=== PATIENT | female | born 1945 | race Caucasian/White ===

== ENCOUNTER → 2019-05-10 | Outpatient (CLI) | payer MEDICARE, OTHER ==
[~2019-05-10] MED LIST: ALEN70 PO; CALCIUM 600 +1 EAC9 PO; FAMVIR PO; Percocet 5-3251 EACH PO; SIMV10 PO
[2019-05-10 14:44] LABS: Stool Occult Bld Immuno 1 Positive (NEGATIVE)
== END ==
LOC: LAB 11:00 → LAB SHORT 11:00
PROVIDERS: Nurse Practitioner Family
DX: Z12.11 Encounter for screening for malignant neoplasm of colon (principal)
CPT/HCPCS: G0328

== ENCOUNTER 2019-10-18 08:06 | Day surgery (SDC) | payer MEDICARE, OTHER ==
[~2019-10-18] VITALS: Ht 162.6 cm; Wt 55.2 kg
[~2019-10-18 08:06] MED LIST changes: +ONE DAILY FOR1 EAC7 PO
--- NOTE | 2019-10-18 09:20 | NUR ---
10/18/19 0920 Valentine Johnson PT. SHAKING. PT. VERBALIZES BEING COLD. WARM BLANKET & WARM PACK GIVEN TO PT. CALL LIGHT IS WITHIN REACH. PT. REMINDED TO CALL IF NEEDED ANYTHING.
== END 2019-10-18 10:30 | disposition home or self-care (01) ==
LOC: ORSCSDS 08:06
PROVIDERS: Internal Medicine Gastroenterology
PROC: 0DJD8ZZ Inspection of Lower Intestinal Tract, Via Natural or Artificial Opening Endoscopic (ICD-10-PCS; principal; 2019-10-18 09:30)
DX: R19.5 Other fecal abnormalities (principal); R10.32 Left lower quadrant pain; K64.8 Other hemorrhoids
CPT/HCPCS: J2704; J7120